=== PATIENT | male | born 1975 | race Caucasian/White ===

== ENCOUNTER 2016-12-14 21:20 | Emergency (ER) | payer OTHER ==
[~2016-12-14] VITALS: Ht 175.3 cm; Wt 102.1 kg
[2016-12-14 21:40] VITALS: BP_SYST 151
[2016-12-14 22:44] VITALS: BP_SYST 145
== END 2016-12-14 22:44 | disposition home or self-care (01) ==
LOC: SED 21:20
DX: Z02.89 Encounter for other administrative examinations (principal)
CPT/HCPCS: 99283